=== PATIENT | female | born 1995 | race Hispanic/Latino ===

== ENCOUNTER 2019-04-06 12:56 | Emergency (ER) | payer SELFPAY ==
[2019-04-06] MEDS ORDERED: NA CHLORIDE 0.9% 1,000 ML ONE (13:54)
[2019-04-06 14:10] LABS: Absolute Lymphocytes (CBC) 2.5 K/uL (0.7-4.9); Basophils % 0.4 % (0-1.3); Hematocrit 35.2 % (36.0-45.0); Lymphocytes % 35.8 % (15.3-44.8); MPV 8.7 fL (7.6-11.3); RBC Red Blood Cell Count 4.27 M/uL (3.86-4.86)
[2019-04-06 14:49] LABS: BUN Blood Urea Nitrogen 10 mg/dL (7-18); Bicarbonate 24 mmol/L (21-32); Glucose Level 89 mg/dL (74-106); HCG, Quantitative 12072 mIU/mL (1-3); Potassium 3.6 mmol/L (3.5-5.1); Sodium Level 138 mmol/L (136-145)
--- NOTE | 2019-04-06 15:38 | RAD REPORT ---
EXAM DESCRIPTION: US - Transvaginal OB - 04/06/2019 3:29 pm CLINICAL HISTORY: ABD CRAMPING, COMPARISON: No comparisons FINDINGS: A single gestational sac is seen within the uterus. Based on mean sac diameter estimated g estational age is 6 weeks 0 days. The shape of the sac is within normal limits for gestational age. W ithin the sac is a small yolk sac. An embryo is not definitively identified. The placenta is not yet developed due to early gestational age. The maternal adnexa and ovaries are within normal limits. Normal Doppler blood flow was demonstrated to both ovaries. IMPRESSION: Small yolk sac is seen within a single gestational sac. Embryo cannot be confirmed as pr esent at this time. Recommend follow-up pelvic ultrasound in 7-10 days as well as serial HCG measurem ents.
--- NOTE | 2019-04-06 16:18 | ER ---
Nurse's Notes [facility] Name: Christy Miranda Age: 24 yrs Sex: Female : 1995 Arrival Date: 04/06/2019 Time: 12:58 Bed 26 Private MD: Diagnosis: Early intrauterine Presentation: 04/06 13:13 Presenting complaint: Patient states: R flank and lower abdominal pain, nausea, burning ph w/ urination and urinary frequency, reports positive UPT Wednesday, unknown gestation r/t irregular menses. Transition of care: patient was not received from another setting of care. Onset of symptoms was April 06, 2019. Risk Assessment: Do you want to hurt yourself or someone else? Patient reports no desire to harm self or others. Initial Sepsis Screen: Does the patient meet any 2 criteria? No. Patient's initial sepsis screen is negative. Does the patient have a suspected source of infection? Yes: Dysuria/Frequency/Urgency/UTI. Care prior to arrival: None. 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 - Social history:: Smoking status: Patient/guardian denies using tobacco. - Ebola Screening: : Patient negative for fever greater than or equal to 101.5 degrees Fahrenheit, and additional compatible Ebola Virus Disease symptoms Patient denies exposure to infectious person Patient denies travel to an Ebola-affected area in the 21 days before illness onset No symptoms or risks identified at this time. Screenin:35 Abuse screen: Denies threats or abuse. Denies injuries from another. Nutritional ca1 screening: No deficits noted. Tuberculosis screening: No symptoms or risk factors identified. Fall Risk None identified. Assessment: 13:35 General: Appears in no apparent distress. distressed, comfortable, Behavior is calm, ca1 cooperative, appropriate for age. Pain: Complains of pain in right low back Pain radiates to right lower quadrant Pain currently is 6 out of 10 on a pain scale. Pain began 1 day ago. Is intermittent. Neuro: Level of Consciousness is awake, alert, obeys commands, Oriented to person, place, time, situation. GI: Abdomen is round non-distended, Bowel sounds present X 4 quads. Abd is soft X 4 quads Abdomen is tender to palpation in right upper quadrant and right lower quadrant. : Reports burning with urination, since last night urgency, urinary frequency. Derm: Skin is intact, is healthy with good turgor, Skin is pink, warm \T\ dry. Musculoskeletal: Circulation, motion, and sensation intact. Capillary refill < 3 seconds, Range of motion: intact in all extremities. 14:20 Reassessment: Patient appears in no apparent distress at this time. Patient is alert, ca1 oriented x 3, equal unlabored respirations, skin warm/dry/pink. 15:40 Reassessment: Patient appears in no apparent distress at this time. Patient is alert, ca1 oriented x 3, equal unlabored respirations, skin warm/dry/pink. Vital Signs: 13:14 BP 105 / 66; Pulse 80; Resp 18; Temp 98.2(TE); Pulse Ox 100% on R/A; Weight 77.11 kg; ph Height 5 ft. 3 in. (160.02 cm); Pain 6/10; 14:20 BP 94 / 61; Pulse 81; Resp 17 S; Pulse Ox 100% on R/A; ca1 15:40 BP 95 / 68; Pulse 70; Resp 17 S; Pulse Ox 100% on R/A; ca1 13:14 Body Mass Index 30.11 (77.11 kg, 160.02 cm) ph ED Course: 12:58 Patient arrived in ED. mr 13:14 Triage completed. ph 13:15 Arm band placed on Patient placed in waiting room, Patient notified of wait time. ph 13:26 Elenita Sanford FNP-C [facility]. snw 13:26 Hakeem Araujo MD is Attending Physician. snw 13:27 Lashell Lo, CHRISTOPHER is Primary Nurse. ca1 13:35 Patient has correct armband on for positive identification. Placed in gown. Bed in low ca1 position. Call light in reach. Side rails up X 1. Pulse ox on. NIBP on. Warm blanket given. 13:35 No provider procedures requiring assistance completed. ca1 13:50 Initial lab(s) drawn, by me, sent to lab. Urine collected: clean catch specimen. lt1 Inserted saline lock: 22 gauge in right antecubital area, using aseptic technique. 15:20 Ultrasound completed. lc3 15:29 US Transvaginal Ob In Process Unspecified. EDMS 16:10 IV discontinued, intact, bleeding controlled, No redness/swelling at site. Pressure ca1 dressing applied. Administered Medications: 13:55 Drug: NS 0.9% 1000 ml Route: IV; Rate: 1 bolus; Site: right antecubital; ca1 15:00 Follow up: Response: No adverse reaction; IV Status: Completed infusion; IV Intake: ca1 1000ml Intake: 15:00 IV: 1000ml; Total: 1000ml. ca1 Outcome: 15:50 Discharge ordered by . snw 16:10 Discharged to home ambulatory, with significant other. ca1 16:10 Condition: stable 16:10 Discharge instructions given to patient, Instructed on discharge instructions, follow up and referral plans. medication usage, Demonstrated understanding of instructions, follow-up care, medications, Prescriptions given X 1. 16:16 Patient left the ED. ca1 Signatures: Dispatcher [employer] EDCA Elenita Sanford, MVA OPERATOR-C MVA OPERATOR-Csnw Carly Trejo Noy Mohr RN RN Pam Ding Cheryl, RN RN ca1 Adilene Ely lt1
--- NOTE | 2019-04-06 16:18 | EDPHYS ---
Physician Documentation [facility] Name: Christy Miranda Age: 24 yrs Sex: Female : 1995 Arrival Date: 04/06/2019 Time: 12:58 Bed 26 Private MD: ED Physician Hakeem Araujo HPI: 04/06 13:56 This 24 yrs old Female presents to ER via Ambulatory with complaints of Back snw Pain, Abdominal Pain. 13:56 The patient presents with pain that is acute, with no known mechanism of injury. The snw symptoms are located in the low back. Onset: The symptoms/episode began/occurred gradually. Location: right low back. Associated signs and symptoms: Pertinent positives: dysuria, potential , pink tinged urine/dc this am. The problem was sustained from unknown cause. Modifying factors: The patient symptoms are alleviated by nothing. Severity of symptoms: At their worst the symptoms were moderate. The patient has not experienced similar symptoms in the past. The patient has not recently seen a physician. three previous pregnancies. 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 - Social history:: Smoking status: Patient/guardian denies using tobacco. - Ebola Screening: : Patient negative for fever greater than or equal to 101.5 degrees Fahrenheit, and additional compatible Ebola Virus Disease symptoms Patient denies exposure to infectious person Patient denies travel to an Ebola-affected area in the 21 days before illness onset No symptoms or risks identified at this time. ROS: 13:54 Constitutional: Negative for fever, chills, and weight loss, Eyes: Negative for injury, snw pain, redness, and discharge, ENT: Negative for injury, pain, and discharge, Neck: Negative for injury, pain, and swelling, Cardiovascular: Negative for chest pain, palpitations, and edema, Respiratory: Negative for shortness of breath, cough, wheezing, and pleuritic chest pain, Back: Negative for injury and pain, : Negative for injury, bleeding, discharge, and swelling, MS/Extremity: Negative for injury and deformity, Skin: Negative for injury, rash, and discoloration, Neuro: Negative for headache, weakness, numbness, tingling, and seizure. 13:54 Abdomen/GI: Positive for abdominal pain, nausea, abdominal cramps, dysuria, + test 2 days ago, pink discharge this am with urination. Exam: 13:54 Constitutional: This is a well developed, well nourished patient who is awake, alert, snw and in no acute distress. Head/Face: Normocephalic, atraumatic. Eyes: Pupils equal round and reactive to light, extra-ocular motions intact. Lids and lashes normal. Conjunctiva and sclera are non-icteric and not injected. Cornea within normal limits. Periorbital areas with no swelling, redness, or edema. ENT: Nares patent. No nasal discharge, no septal abnormalities noted. Tympanic membranes are normal and external auditory canals are clear. Oropharynx with no redness, swelling, or masses, exudates, or evidence of obstruction, uvula midline. Mucous membranes moist. Neck: Trachea midline, no thyromegaly or masses palpated, and no cervical lymphadenopathy. Supple, full range of motion without nuchal rigidity, or vertebral point tenderness. No Meningismus. Chest/axilla: Normal chest wall appearance and motion. Nontender with no deformity. No lesions are appreciated. Cardiovascular: Regular rate and rhythm with a normal S1 and S2. No gallops, murmurs, or rubs. Normal PMI, no JVD. No pulse deficits. Respiratory: Lungs have equal breath sounds bilaterally, clear to auscultation and percussion. No rales, rhonchi or wheezes noted. No increased work of breathing, no retractions or nasal flaring. Back: No spinal tenderness. No costovertebral tenderness. Full range of motion. Skin: Warm, dry with normal turgor. Normal color with no rashes, no lesions, and no evidence of cellulitis. MS/ Extremity: Pulses equal, no cyanosis. Neurovascular intact. Full, normal range of motion. Neuro: Awake and alert, GCS 15, oriented to person, place, time, and situation. Cranial nerves II-XII grossly intact. Motor strength 5/5 in all extremities. Sensory grossly intact. Cerebellar exam normal. Normal gait. Psych: Awake, alert, with orientation to person, place and time. Behavior, mood, and affect are within normal limits. 13:54 Abdomen/GI: Inspection: abdomen appears normal, Bowel sounds: normal, Palpation: moderate abdominal tenderness, in the suprapubic area. Vital Signs: 13:14 BP 105 / 66; Pulse 80; Resp 18; Temp 98.2(TE); Pulse Ox 100% on R/A; Weight 77.11 kg; ph Height 5 ft. 3 in. (160.02 cm); Pain 6/10; 14:20 BP 94 / 61; Pulse 81; Resp 17 S; Pulse Ox 100% on R/A; ca1 15:40 BP 95 / 68; Pulse 70; Resp 17 S; Pulse Ox 100% on R/A; ca1 13:14 Body Mass Index 30.11 (77.11 kg, 160.02 cm) ph MDM: 13:32 Patient medically screened. snw 15:54 Data reviewed: vital signs, nurses notes. Data interpreted: Pulse oximetry: on room air snw is 100 %. Interpretation: normal. Counseling: I had a detailed discussion with the patient and/or guardian regarding: the historical points, exam findings, and any diagnostic results supporting the discharge/admit diagnosis, lab results, radiology results, the need for outpatient follow up, to return to the emergency department if symptoms worsen or persist or if there are any questions or concerns that arise at home. Special discussion: Based on the patient's Hx, exam, and Dx evaluation, there is no indication for emergent surgery or inpatient Tx. It is understood by the patient/guardian that if the Sx's persist or worsen they need to return immediately for re-evaluation. Based on the history and exam findings, there is no indication for further emergent testing or inpatient evaluation. I discussed with the patient/guardian the need to see the OB Gyne specialist for further evaluation of the symptoms. 04/06 13:34 Order name: Quantitative Hcg; Complete Time: 14:57 snw 04/06 13:34 Order name: Abo/rh Typing; Complete Time: 14:35 snw 04/06 13:34 Order name: Basic Metabolic Panel; Complete Time: 14:57 snw 04/06 13:34 Order name: CBC with Diff; Complete Time: 14:31 snw 04/06 13:34 Order name: Urine Test (obtain specimen); Complete Time: 13:44 snw 04/06 13:34 Order name: IV Saline Lock; Complete Time: 13:51 snw 04/06 13:34 Order name: Labs collected and sent; Complete Time: 13:51 snw 04/06 13:34 Order name: NPO; Complete Time: 13:38 snw 04/06 13:34 Order name: Urine Dipstick-Ancillary (obtain specimen); Complete Time: 13:44 snw 04/06 14:58 Order name: US Transvaginal Ob; Complete Time: 15:43 snw 04/06 15:04 Order name: ABO/RH no charge; Complete Time: 15:05 EDMS Administered Medications: 13:55 Drug: NS 0.9% 1000 ml Route: IV; Rate: 1 bolus; Site: right antecubital; ca1 15:00 Follow up: Response: No adverse reaction; IV Status: Completed infusion; IV Intake: ca1 1000ml Disposition: 04/07 07:30 Co-signature as Attending Physician, Hakeem Araujo MD I agree with the assessment and kdr plan of care. Disposition: 04/06/19 15:50 Discharged to Home. Impression: Early intrauterine . - Condition is Stable. - Discharge Instructions: Abdominal Pain During , First Trimester of . - Prescriptions for Vitamin 27- 0.8 mg Oral Tablet - take 1 tablet by ORAL route once daily; 60 tablet. - Medication Reconciliation Form, Thank You Letter, Antibiotic Education, Prescription Opioid Use form. - Follow up: Private Physician; When: 2 - 3 days; Reason: Recheck today's complaints, Continuance of care, Re-evaluation by your physician. Follow up: Emergency Department; When: As needed; Reason: Worsening of condition. Signatures: Dispatcher [employer] EDOR Hakeem Araujo MD MD kdr Therrien, Shelly, SHEELA-C SCHOOL INSPECTOR-Antoinew Noy Mohr RN RN Lashell Lo RN RN ca1 Corrections: (The following items were deleted from the chart) 04/06 16:16 15:50 04/06/2019 15:50 Discharged to Home. Impression: Early intrauterine . ca1 Condition is Stable. Forms are Medication Reconciliation Form, Thank You Letter, Antibiotic Education, Prescription Opioid Use. Follow up: Private Physician; When: 2 - 3 days; Reason: Recheck today's complaints, Continuance of care, Re-evaluation by your physician. Follow up: Emergency Department; When: As needed; Reason: Worsening of condition. snw
[2019-04-06 17:42] VITALS: TEMP 98.2; O2SAT 100
[2019-04-06 17:45] VITALS: BP 95/68
== END 2019-04-06 16:16 | disposition home or self-care (01) ==
LOC: ER 12:56
DX: O26.891 Other specified pregnancy related conditions, first trimester (principal); Z3A.01 Less than 8 weeks gestation of pregnancy
CPT/HCPCS: 36415; 76817; 80048; 84702; 85025; 86900; 86901; 96360; 99284; J7030